=== PATIENT | male | born 1940 | race Caucasian/White ===

== ENCOUNTER 2021-08-12 12:34 | Outpatient (CLI) | payer MEDICARE | END 2021-08-12 12:35 | disposition home or self-care (01) | LOC: BICRAD 12:34 | PROVIDERS: ATTEND Internal Medicine | DX: M54.2 Cervicalgia (principal); M47.812 Spondylosis without myelopathy or radiculopathy, cervical region | CPT/HCPCS: 72040 ==

== ENCOUNTER 2021-09-02 09:09 | Outpatient (CLI) | payer MEDICARE | END 2021-09-02 09:10 | disposition home or self-care (01) | LOC: TBSIIMAG 09:09 → MRI 09:10 | PROVIDERS: ATTEND Internal Medicine | DX: M47.22 Other spondylosis with radiculopathy, cervical region (principal) | CPT/HCPCS: 72040; 72141 ==

== ENCOUNTER 2022-11-03 08:04 | Outpatient (CLI) | payer MEDICARE | END 2022-11-03 08:05 | disposition home or self-care (01) | LOC: ULT 08:04 | PROVIDERS: ATTEND Internal Medicine | DX: Z13.6 Encounter for screening for cardiovascular disorders (principal) | CPT/HCPCS: 76775 ==

== ENCOUNTER 2024-11-21 11:43 | Outpatient (CLI) | payer MEDICARE | END 2024-11-21 11:44 | disposition home or self-care (01) | LOC: ULT 11:43 | PROVIDERS: ATTEND Internal Medicine | DX: E87.1 Hypo-osmolality and hyponatremia (principal); N39.43 Post-void dribbling | CPT/HCPCS: 76770 ==